=== PATIENT | female | born 1950 | race Caucasian/White ===

== ENCOUNTER 2019-09-16 21:59 | Inpatient (IN) | payer MEDICARE ==
[~2019-09-16] VITALS: Ht 165.1 cm; Wt 85.7 kg
--- NOTE | ~2019-09-16 | CON ---
[address] [address] CONSULTATION Name: DARLENE DENNIS Room: [address] M.R.#: [id number] Admission: 09/17/19 Attend Phys: Odin Davis, Discharge: Date of : 46 Report #: [id number] THIS REPORT FOR: //name// cc: FLORY Goode family physician/PCP FLORY Goode family physician/PCP ~ THIS REPORT FOR: //name// CC: FLORY physician/PCP Odin Davis DATE OF SERVICE: 09/17/2019 HISTORY OF PRESENT ILLNESS: This is a 69-year-old female patient who says that she has a headache for about 10 days. The headache started spontaneously. It is bilateral. It is more in the frontal. She indicated that she went to [facility]. An MRI and a lot of blood workup was done. I do not have any of those records. She was given steroids, which did not make her better, but she was given some other medication here and she is feeling much better. Her headache is much improved. She usually does not get any headache. REVIEW OF SYSTEMS: Indicate that the patient had headache. She is on anticoagulation for DVT. She also had a pulmonary embolus. They try to stop the anticoagulation and there was a reoccurrence of the thrombus formation, so as she has been on morphine for a long time. She indicated a lot of relatives at one time, and she became depressed. She was put on duloxetine. She has taken it for a long time and she does not feel she is depressed. Some of the records indicate that she may have hepatitis C. This was a relevant 14-point review of system. PAST MEDICAL HISTORY: Negative for any stroke. FAMILY HISTORY: Negative for any early age stroke. SOCIAL HISTORY: She smokes. PHYSICAL EXAMINATION: Indicates she is alert. She is responsive. She can follow simple and complex command. I cannot look at the fundus, but her cranial nerve examination appears unremarkable. Strength, sensation, reflexes and tone is symmetrical. There is no meningeal sign. There is no thyroid mass. She is reasonably well-developed individual. No cardiac abnormality, no respiratory difficulty or rhonchi. IMPRESSION: This patient has a new onset of headache. She has a history of DVT, which is concerning because they can develop intracranial sinus thrombosis. She was subtherapeutic on her anticoagulation and that can occur, but that is rare. We need to exclude the possibility [place] [address] CONSULTATION Name: LIT DENNISMANDY Claudio Room: [address] IN [facility]#: [id number] Admission: 09/17/19 Attend Phys: Odin Davis, Discharge: Date of : 46 Report #: [id number] RECOMMENDATION: I think instead of repeating all the workup here, I will try to get the MRI report from [facility] and see what they did. She may need an MRI as well as MRV depending upon what they did. I will go ahead and order a sed rate here and will follow the patient along with you. By: 27 57Tushar White MD /nt
[2019-09-16 22:11] VITALS: BP 134/58
[2019-09-16] MEDS ORDERED: COUMADIN 4 MG TA4 M1 PO (22:19)
[2019-09-16] MEDS ORDERED: CYMBALTA60 MG PO (22:21)
[2019-09-16 23:23] LABS: ABSOLUTE BASOPHILS 0.1 thou/uL (0.0-0.2); ABSOLUTE EOSINOPHILS 0.2 thou/uL (0.0-0.7); ABSOLUTE LYMPHOCYTES 2.4 thou/uL (0.8-5.3); ABSOLUTE MONOCYTES 0.8 thou/uL (0.0-1.2); ABSOLUTE NEUTROPHILS 4.2 thou/uL (1.6-8.1); BASOPHILS 0.7 %; EOSINOPHILS 3.2 %; HEMOGLOBIN 13.7 gm/dL (12.0-15.0); LYMPHOCYTES 31.3 %; MCH 32.7 pg (26.0-34.0); MCHC 34.2 g/dL (28.0-37.0); MCV 95.5 fL (80.0-100.0); MONOCYTES 10.8 %; MPV 8.2 fl. (7.2-11.1); NUCLEATED RBCS 0 /100WBC; PLATELET COUNT* 265 thou/uL (150-400); RBC 4.19 mil/uL (4.20-5.00); RDW-CV 15.2 % (10.5-14.5); WBC 7.7 thou/uL (4.0-11.0)
[2019-09-16 23:27] LABS: CALCIUM 8.4 mg/dL (8.5-10.1); CREATININE 0.6 mg/dL (0.6-1.3); POTASSIUM 3.4 mmol/L (3.5-5.1)
[2019-09-16 23:32] LABS: MAGNESIUM 1.6 mg/dL (1.8-2.4); TOTAL BILIRUBIN 0.4 mg/dL (<0.1-1.0); TOTAL PROTEIN 6.8 g/dL (6.4-8.2)
[2019-09-16 23:42] LABS: URINE BILIRUBIN NEGATIVE (Negative); URINE BLOOD NEGATIVE (Negative); URINE CLARITY CLEAR; URINE COLOR YELLOW; URINE GLUCOSE-RANDOM NEGATIVE (Negative); URINE KETONES NEGATIVE (Negative); URINE LEUKOCYTES-REFLEX NEGATIVE (Negative); URINE NITRITE-REFLEX NEGATIVE (Negative); URINE PROTEIN TRACE (Negative); URINE SPECIFIC GRAVITY 1.015 (1.005-1.030)
[2019-09-17 01:20] LABS: INR 1.6; PROTIME 16.4 Seconds (9.20-11.50)
[2019-09-17 03:29] VITALS: BP 155/62
[2019-09-17 09:52] VITALS: BP 147/85
[2019-09-17 16:00] VITALS: BP 120/63
[2019-09-17 20:38] VITALS: BP 121/68
[2019-09-18 01:35] LABS: INFLUENZA A ANTIGEN Negative (Negative); INFLUENZA B ANTIGEN Negative (Negative)
[2019-09-18 04:00] LABS: HEMATOCRIT 41.5 % (37.0-47.0); HEMOGLOBIN 14.1 gm/dL (12.0-15.0); MCH 33.3 pg (26.0-34.0); MPV 8.6 fl. (7.2-11.1); RBC 4.24 mil/uL (4.20-5.00); RDW-CV 15.3 % (10.5-14.5); WBC 6.9 thou/uL (4.0-11.0)
[2019-09-18 04:24] LABS: INR 1.3; PROTIME 13.3 Seconds (9.20-11.50)
[2019-09-18 04:33] LABS: ALBUMIN 3.1 g/dL (3.4-5.0); CALCIUM 8.7 mg/dL (8.5-10.1); CREATININE 0.6 mg/dL (0.6-1.3); PHOSPHORUS* 2.9 mg/dL (2.5-4.9); POTASSIUM 4.1 mmol/L (3.5-5.1)
[2019-09-18 09:00] VITALS: BP 142/70
[2019-09-18 21:00] VITALS: BP 123/70
[2019-09-19 04:10] LABS: INR 1.3; PROTIME 13.4 Seconds (9.20-11.50)
[2019-09-19] MEDS ORDERED: BUTALB-APAP-CA1 EACH PO (08:21)
[2019-09-19 11:33] VITALS: BP 123/70
== END 2019-09-19 13:00 | disposition home or self-care (01) | DRG 103 ==
LOC: M.ERS 21:59 → M.ORTHSURG 09-17 02:57 → M.TBA-ER 09-17 02:57 → M.ORTHSURG 09-17 03:32
PROVIDERS: Family Medicine; Internal Medicine; Personal Emergency Response Attendant; ADMIT Family Medicine
DX: G44.209 Tension-type headache, unspecified, not intractable (principal); D68.59 Other primary thrombophilia; F41.9 Anxiety disorder, unspecified; F32.9 Major depressive disorder, single episode, unspecified; F17.210 Nicotine dependence, cigarettes, uncomplicated; M17.0 Bilateral primary osteoarthritis of knee; E66.9 Obesity, unspecified; Z86.711 Personal history of pulmonary embolism; Z86.718 Personal history of other venous thrombosis and embolism; Z79.01 Long term (current) use of anticoagulants; Z68.31 Body mass index [BMI] 31.0-31.9, adult; Z88.6 Allergy status to analgesic agent; Z88.5 Allergy status to narcotic agent; G43.909 Migraine, unspecified, not intractable, without status migrainosus

== ENCOUNTER 2020-06-02 10:52 | Emergency (ER) | payer MEDICARE ==
[~2020-06-02] VITALS: Ht 162.6 cm; Wt 83.9 kg
[~2020-06-02 10:52] MED LIST: BUTALB-APAP-CA1 EACH PO; COUMADIN 4 MG TA4 M1 PO; CYMBALTA60 MG PO
[2020-06-02 11:36] LABS: ABSOLUTE BASOPHILS 0.1 thou/uL (0.0-0.2); ABSOLUTE EOSINOPHILS 0.1 thou/uL (0.0-0.7); ABSOLUTE LYMPHOCYTES 2.7 thou/uL (0.8-5.3); ABSOLUTE MONOCYTES 0.8 thou/uL (0.0-1.2); ABSOLUTE NEUTROPHILS 6.8 thou/uL (1.6-8.1); BASOPHILS 1.1 %; EOSINOPHILS 0.7 %; HEMATOCRIT 46.3 % (37.0-47.0); HEMOGLOBIN 15.6 gm/dL (12.0-15.0); LYMPHOCYTES 25.5 %; MCH 32.6 pg (26.0-34.0); MCHC 33.7 g/dL (28.0-37.0); MCV 96.9 fL (80.0-100.0); MONOCYTES 7.7 %; MPV 7.6 fl. (7.2-11.1); NUCLEATED RBCS 0 /100WBC; PLATELET COUNT* 257 thou/uL (150-400); RBC 4.78 mil/uL (4.20-5.00); WBC 10.5 thou/uL (4.0-11.0)
[2020-06-02 11:44] LABS: CREATININE 0.7 mg/dL (0.6-1.3); POTASSIUM 4.2 mmol/L (3.5-5.1)
[2020-06-02 11:49] LABS: ALBUMIN 3.4 g/dL (3.4-5.0); TOTAL BILIRUBIN 0.6 mg/dL (<0.1-1.0)
[2020-06-02 12:13] LABS: INR 1.4; PROTIME 14.7 Seconds (9.20-11.50)
[2020-06-02] MEDS ORDERED: NORCO 5-325 TA1 EAC2 PO (13:21)
[2020-06-02 14:06] VITALS: BP 127/82
--- NOTE | 2020-06-02 15:35 | EKG ---
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 : 1950 Requested By: Waldo Newton Order Number: [id number] MD: Mahendra Zapata Measurements Intervals [place] Rate: 79 P: 54 MO: 180 QRS: -6 QRSD: 83 T: 33 QT: 379 QTc: 435 Interpretive Statements Sinus rhythm Probable left atrial enlargement Inferior infarct, old Consider anterior infarct, old No previous ECG available for comparison Electronically Signed On 06-02-2020 15:35:48 SOAKING ROOM OPERATOR by Mahendra Zapata [email or web address] <ELECTRONICALLY SIGNED> By: Mahendra Zapata MD, FAC 06/02/20 1535 1132 1132 Mahendra Zapata MD, [facility] /EPI
== END 2020-06-02 14:08 | disposition home or self-care (01) ==
LOC: M.ERS 10:52
PROVIDERS: Emergency Medicine Emergency Medical Services
DX: M77.8 Other enthesopathies, not elsewhere classified (principal); Z79.01 Long term (current) use of anticoagulants; Z79.899 Other long term (current) drug therapy; Z88.6 Allergy status to analgesic agent; Z86.718 Personal history of other venous thrombosis and embolism

== ENCOUNTER 2021-01-06 19:40 | Emergency (ER) | payer MEDICARE ==
[~2021-01-06] VITALS: Ht 162.6 cm; Wt 86.2 kg
[~2021-01-06 19:40] MED LIST changes: -COUMADIN 4 MG TA4 M1 PO; +JANTOVEN4 MG PO; +NORCO 5-325 TA1 EAC2 PO
[2021-01-06 21:12] LABS: ABSOLUTE BASOPHILS 0.1 thou/uL (0.0-0.2); ABSOLUTE EOSINOPHILS 0.2 thou/uL (0.0-0.7); ABSOLUTE LYMPHOCYTES 3.3 thou/uL (0.8-5.3); ABSOLUTE MONOCYTES 1.1 thou/uL (0.0-1.2); ABSOLUTE NEUTROPHILS 4.4 thou/uL (1.6-8.1); BASOPHILS 1.4 %; EOSINOPHILS 2.7 %; HEMATOCRIT 40.4 % (37.0-47.0); HEMOGLOBIN 14.2 gm/dL (12.0-15.0); LYMPHOCYTES 36.1 %; MCH 33.1 pg (26.0-34.0); MCHC 35.1 g/dL (28.0-37.0); MCV 94.3 fL (80.0-100.0); MONOCYTES 11.8 %; MPV 7.9 fl. (7.2-11.1); NUCLEATED RBCS 0 /100WBC; PLATELET COUNT* 267 thou/uL (150-400); RBC 4.29 mil/uL (4.20-5.00); WBC 9.1 thou/uL (4.0-11.0)
[2021-01-06 21:20] LABS: CALCIUM 9.3 mg/dL (8.5-10.1); CREATININE 0.9 mg/dL (0.6-1.3); POTASSIUM 3.5 mmol/L (3.5-5.1)
[2021-01-06 21:25] LABS: ALBUMIN 3.6 g/dL (3.4-5.0); TOTAL BILIRUBIN 0.5 mg/dL (<0.1-1.0)
[2021-01-07] MEDS ORDERED: MEDROLDOSEPACK PO (00:29)
[2021-01-07] MEDS ORDERED: NORCO5 PO (00:29)
[2021-01-07 00:44] VITALS: BP 136/72
== END 2021-01-07 00:44 | disposition home or self-care (01) ==
LOC: M.ERS 19:40
PROVIDERS: Personal Emergency Response Attendant
DX: K11.21 Acute sialoadenitis (principal); Z88.5 Allergy status to narcotic agent; Z79.899 Other long term (current) drug therapy; Z79.01 Long term (current) use of anticoagulants; Z86.718 Personal history of other venous thrombosis and embolism; Z86.711 Personal history of pulmonary embolism